=== PATIENT | female | born 1995 | race Caucasian/White ===

== ENCOUNTER 2022-08-30 16:08 | Outpatient (CLI) | payer OTHER | END 2022-08-30 16:09 | disposition home or self-care (01) | LOC: LAB 16:08 | PROVIDERS: ATTEND Obstetrics & Gynecology Gynecology | DX: O09.93 Supervision of high risk pregnancy, unspecified, third trimester (principal) ==

== ENCOUNTER 2022-09-13 15:00 | Inpatient (IN) | payer OTHER ==
[~2022-09-13] VITALS: Ht 149.9 cm; Wt 3.6 kg
[2022-09-19] MEDS ORDERED: PRENATAL + DHA1 EAC1 PO (08:50)
== END 2022-09-21 14:00 | disposition home or self-care (01) | DRG 788 ==
LOC: EDSTATUS 09-14 13:15 → LDR 09-19 06:05 → OB/GYN 09-19 06:05
PROVIDERS: ADMIT Obstetrics & Gynecology; ATTEND Obstetrics & Gynecology
PROC: 4A1HXCZ Monitoring of Products of Conception, Cardiac Rate, External Approach (ICD-10-PCS; 2022-09-19)
PROC: 10D00Z1 Extraction of Products of Conception, Low, Open Approach (ICD-10-PCS; principal; 2022-09-19 13:00)
DX: O62.1 Secondary uterine inertia (principal); O99.824 Streptococcus B carrier state complicating childbirth; Z3A.39 39 weeks gestation of pregnancy; Z37.0 Single live birth; Z20.822 Contact with and (suspected) exposure to COVID-19

== ENCOUNTER 2022-09-14 12:52 | Outpatient (CLI) | payer OTHER | END 2022-09-14 13:38 | disposition home or self-care (01) | LOC: NST 12:52 | PROVIDERS: ATTEND Obstetrics & Gynecology Maternal & Fetal Medicine | DX: Z34.83 Encounter for supervision of other normal pregnancy, third trimester (principal) ==